=== PATIENT | male | born 1955 | race Caucasian/White ===

== ENCOUNTER 2020-03-04 09:21 | Day surgery (SDC) | payer OTHER ==
[~2020-03-04] VITALS: Ht 180.3 cm; Wt 85.3 kg
--- NOTE | 2020-03-04 09:10 | H ---
[facility] [place] [address] HISTORY AND PHYSICAL Name: BENJAMIN WRAY Room #: PRE [facility] M..#: [id number] Admission: Attend Phys: Elmo Ivy MD Discharge: Date of : 55 Report #: [id number] THIS REPORT FOR: cc: [facility] - Family physician unknown [facility] - Family physician unknown Elmo Ivy MD ~ CC: [facility] unknown Ayden Ivy PATIENT OF: Dr. Ayden Lui. CHIEF COMPLAINT: Left groin bulge. HISTORY OF PRESENT ILLNESS: The patient is a 64-year-old white male who about 6 weeks ago started noticing a bulge in left groin area with what he described as a squishy sound. He denies pain. He does have some discomfort in the area. No previous history of any hernias. He denies any significant change in bowel or bladder habits. Saw his primary care physician, Dr. Ayden Lui, who recommended surgical consultation for this left groin bulge. PAST MEDICAL HISTORY: Hypothyroidism, gastroesophageal reflux disease. PAST SURGICAL HISTORY: Biceps tendon repair, right lateral meniscus, knee surgery, nasal fracture, history of esophageal myotomy. MEDICATIONS: Levothyroxine 50 mcg p.o. daily, Dexilant 60 mg p.o. daily and Humira 40 mg subcutaneous q. 6 weeks. ALLERGIES: No known drug allergies. FAMILY HISTORY: Noncontributory. SOCIAL HISTORY: The patient is retired, does not smoke, drinks alcohol occasionally and in moderation. He is retired. REVIEW OF SYSTEMS: Pertinent positives as above. Full review of systems as per electronic medical record as reviewed by myself and otherwise negative. PHYSICAL EXAMINATION: GENERAL: This is a well-developed, well-nourished white male, in no acute distress. VITAL SIGNS: Stable. He is afebrile. HEENT: Sclerae are nonicteric. Mucous membranes moist and pink. No adenopathy. NECK: No thyromegaly. LUNGS: Clear to auscultation bilaterally. Normal excursion. [facility] [address] [place] [address] HISTORY AND PHYSICAL Name: BENJAMIN WRAY Room #: [facility] M.R.#: [id number] Admission: Attend Phys: Elmo Ivy MD Discharge: Date of : 55 Report #: [id number] CARDIOVASCULAR: Regular rate and rhythm. No murmurs, S3 or S4. No PMI. ABDOMEN: Soft, flat and nontender. No palpable mass, no organomegaly, no hernias, no abdominal incision scars. GENITOURINARY: Normal scrotum, phallus and testes. Palpable small to moderate sized reducible left inguinal hernia. EXTREMITIES: No clubbing, cyanosis or edema. NEUROLOGIC: Intact with a clear mental status. No focal motor or sensory deficits. IMPRESSION AND PLAN: A 64-year-old white male with a left inguinal hernia. I fully discussed with the patient diagnosis, prognosis, and treatment options, the risks and benefits of each and I have recommended left inguinal hernia repair. He states he understands and agrees to proposed surgery. I discussed with him the hernia repair as well as the use of mesh. He states he understands and agrees to proposed surgery. <ELECTRONICALLY SIGNED> By: Elmo Ivy MD 03/04/20 0910 1302 1326 Elmo Ivy MD /nt
[~2020-03-04 09:21] MED LIST: DEXILANT60 MG PO; HUMIRA40 MG/0.4 SUBQ; LEVOXYL50 MCG PO
[2020-03-04 10:00] VITALS: BP 156/86
[2020-03-04] MEDS ORDERED: NORCO 5-325 TA1 EAC1 PO (11:26)
[2020-03-04 13:01] VITALS: BP 156/86
--- NOTE | 2020-03-04 16:43 | O ---
[facility] [place] [address] OPERATIVE REPORT Name: BENJAMIN WRAY Room #: DEP [facility]#: [id number] Admission: 03/04/20 Attend Phys: Elmo Ivy MD Discharge: 03/04/20 Date of : 55 Report #: [id number] THIS REPORT FOR: cc: [facility] - Family physician unknown [facility] - Family physician unknown Elmo Ivy MD ~ CC: Dr. Ayden VÁSQUEZ unknown Elmo Ivy DATE OF SERVICE: 03/04/2020 PREOPERATIVE DIAGNOSIS: Left inguinal hernia. POSTOPERATIVE DIAGNOSIS: Left inguinal hernia with a left cord lipoma. PROCEDURE: Left inguinal hernia repair with Prolene hernia system mesh and excision of left cord lipoma. SURGEON: Elmo Ivy MD ANESTHESIA: Local IV sedation. DESCRIPTION OF PROCEDURE: The patient was brought to the operating room and placed on the operative table in the supine position. Sequential compression devices were in place for DVT prophylaxis. There was no indication for preoperative antibiotics. The patient underwent IV sedation. Left inguinal area was prepped and draped in a sterile fashion. Skin and subcutaneous tissue were then infiltrated with 0.5% Marcaine and 1% Xylocaine with epinephrine. Left inguinal skin incision was then performed using #10 scalpel blade. Hemostasis obtained using electrocautery as well as clamps and 2-0 chromic ties. Dissection was carried down through subcutaneous tissue, the external oblique fascia, which was then incised with a knife and opened with the Metzenbaum scissors. The ilioinguinal nerve was identified, dissected free, injected with local mixture and preserved. Cord was then elevated and held in place with a Horicon drain. Cremasteric muscle fibers were then split in the direction of their fibers using a clamp and electrocautery. Cord lipoma was identified, dissected free, clamped, excised and tied with a 2-0 chromic tie. An indirect inguinal hernia sac was identified, dissected free and reduced back into the preperitoneal space through the internal ring. An extended Prolene hernia system mesh was then inserted through the internal ring and then underlay patch was then deployed in the preperitoneal space. Connector was left in the internal ring and the overlay patch was then deployed into the inguinal canal. The mesh was secured to the pubic tubercle superiorly and at the connector using simple interrupted 2-0 Vicryl sutures. The mesh was split and wrapped around the cord, secured to the inguinal ligament with simple interrupted 2-[address] [address] OPERATIVE REPORT Name: BENJAMIN WRAY Veronique Room #: [facility]P [facility]#: [id number] Admission: 03/04/20 Attend Phys: Elmo Ivy MD Discharge: 03/04/20 Date of : 55 Report #: [id number] suture. The cord and ilioinguinal nerve were then returned to the canal intact. The external oblique fascia was then closed using running 2-0 Vicryl suture. Simba fascia was then reapproximated using 3 simple interrupted 2-0 chromic sutures and the skin then closed with a running 4-0 subcuticular Vicryl stitch. The wound was then dressed with Mastisol, 1/2-inch Steri-Strips cut in half, Telfa, 4 x 4 gauze, sponge and tape. The patient was then taken to the recovery room awake, alert and in good condition. Estimated blood loss was approximately 5-10 mL and the patient tolerated the procedure well. All sponge, lap and instrument counts correct x 2. <ELECTRONICALLY SIGNED> By: Elmo Ivy MD 03/04/20 1643 1307 1333 Elmo Ivy MD /nt
--- NOTE | 2020-03-06 12:08 | PATH ---
[facility] [address] [place] [address] PATHOLOGY RPT PROCEDURE Name: BENJAMIN FERGUSON Room #: DEP [facility].R.#: [id number] Admission: 03/04/20 Date of : 55 Discharge: 03/04/20 Report #: [id number] Path Case #: [id number] [facility] Accession Number: [id number] . 01 Material submitted: . inguinal area - CORD LIPOMA . 01 Clinical history: . Inguinal hernia . 02 Diagnosis: Mature adipose tissue, cord lipoma, excision: - Compatible with a lipoma. (IUV:zachary; 03/05/2020) S 03/05/2020 1406 Local . 02 Electronically signed: . Marta Dean MD, Pathologist NPI- [id number] . 01 Gross description: . The specimen is received in formalin, labeled "Benjamin Ferguson, cord lipoma". Received are two partially capsulated segments of bright yellow lobulated tissue measuring 6.1 x 3.6 x 1.5 cm in aggregate dimensions. Sectioning reveals bright yellow, lobulated cut surfaces throughout. The specimen is submitted representatively in cassette A1. (CAA; 03/04/2020) QAC/QAC 03/04/2020 1822 Local . 02 Pathologist provided ICD-10: D17.79 . 02 CPT . 898689 Specimen Comment: A courtesy copy of this report has been sent to [phone] Specimen Comment: Report sent to Performed at: [address] [facility], [place] [id number] MD Benjy Berg MD Phone: [phone] Performed at: [address] [id number] MD Marta Dean MD Phone: [phone]
== END 2020-03-04 13:40 | disposition home or self-care (01) ==
LOC: OR 09:21 → TBA 09:23 → OR 10:08
PROVIDERS: ATTEND Surgery
DX: K40.90 Unilateral inguinal hernia, without obstruction or gangrene, not specified as recurrent (principal); D17.6 Benign lipomatous neoplasm of spermatic cord; E03.9 Hypothyroidism, unspecified; K21.9 Gastro-esophageal reflux disease without esophagitis; Z98.890 Other specified postprocedural states; Z79.899 Other long term (current) drug therapy; Z85.828 Personal history of other malignant neoplasm of skin; Z11.59 Encounter for screening for other viral diseases
CPT/HCPCS: 50010; 50101; 50386; 50417; 54111; 56524; 56526; 56528; 62110; 62850; 70005